=== PATIENT | female | born 1965 | race Hispanic/Latino ===

== ENCOUNTER → 2020-06-16 | Outpatient (CLI) | payer OTHER | LOC: MRI 07:45 | PROVIDERS: ATTEND Specialist | DX: S83.242A Other tear of medial meniscus, current injury, left knee, initial encounter (principal); S83.241A Other tear of medial meniscus, current injury, right knee, initial encounter ==

== ENCOUNTER → 2020-06-29 | Outpatient (RCR) | payer OTHER | LOC: PT 06-26 09:58 | PROVIDERS: ATTEND Specialist | DX: S13.4XXA Sprain of ligaments of cervical spine, initial encounter (principal); M17.11 Unilateral primary osteoarthritis, right knee ==